=== PATIENT | female | born 1980 | race Caucasian/White ===

== ENCOUNTER 2017-05-14 14:14 | Emergency (ER) | payer OTHER ==
[2017-05-14] MEDS ORDERED: ONDANSETRON HCL/PF 4 MG/ 2ML VIAL IVP ONE (14:32)
[2017-05-14] MEDS ORDERED: 0.9 % SODIUM CHLORIDE 1,000 ML IV ONE (14:32)
[2017-05-14] MEDS ORDERED: KETOROLAC TROMETHAMINE 30 MG/1ML VIAL IVP ONE (14:33)
--- NOTE | 2017-05-14 15:30 | ED Physician Documentation ---
General Adult - HISTORIAN Historian: patient - HPI Stated Complaint: headache Chief Complaint: General Adult Onset: days ago (1) Timing: still present Severity: moderate Further Comments: yes (Pt is a 36 yo female who c/o migraine headache. Headache is similar in character to previous migraines. Pt has had photophobia and nausea. Pt has been dizzy with standing.) - ROS CONST: weakness EYES/ENT: none CVS/RESP: none GI/: nausea MS/SKIN/LYMPH: none NEURO/PSYCH: headache - PAST HX Past History: other (migraine, hypothyroidism) Surgeries/Procedures: Allergies/Adverse Reactions: Allergies Allergy/AdvReac Type Severity Reaction Status Date / Time topiramate [From Topamax] Allergy Verified 05/14/17 14:57 Home Medications: Ambulatory Orders Medication Instructions Recorded Thyroid,Pork [[place] Thyroid] 120 mg PO DAILY 10/09/12 - SOCIAL HX Smoking History: non-smoker - FAMILY HX Family History: No - VITAL SIGNS Vital Signs: Vital Signs Temp Pulse Resp BP Pulse Ox 98.2 F 98 H 16 128/87 97 05/14/17 14:28 05/14/17 14:49 05/14/17 14:49 05/14/17 14:49 05/14/17 14:49 - REVIEWED ASSESSMENTS Nursing Assessment Reviewed: Yes Vitals Reviewed: Yes Progress - Progress Progress: NS 1 L IVF Zofran 4 mg IV Toradol 30 mg IV improved. ED Results Lab/Radiology - Orders Orders: ED Orders Category Date Time Status Place IV Lock 1T Care 05/14/17 14:47 Active 0.9 % Sodium Chloride [Normal Saline] 1,000 ml Med 05/14/17 14:32 Active IV Q1H Ketorolac Tromethamine [Toradol] Med 05/14/17 14:33 Discontinued 30 mg IVP NOW ONE Ondansetron HCl/Pf [Zofran 4 mg/2 ml] Med 05/14/17 14:32 Discontinued 4 mg IVP NOW ONE General Adult Physical Exam - PHYSICAL EXAM GENERAL APPEARANCE: moderate distress EENT: eye inspection normal, ENT inspection normal, pharynx normal NECK: normal inspection, supple RESPIRATORY: no resp distress, chest non-tender, breath sounds normal CVS: reg rate & rhythm, heart sounds normal ABDOMEN: soft, no organomegaly, normal bowel sounds BACK: normal inspection, no CVA tenderness SKIN: warm/dry, normal color EXTREMITIES: non-tender, normal range of motion, no evidence of injury, no edema NEURO: oriented X3, CN's nml as tested, motor nml, sensation nml Discharge Clincal Impression: Migraine Qualifiers: Migraine type: unspecified Status migrainosus presence: without status migrainosus Intractability: not intractable Qualified Code(s): G43.909 - Migraine, unspecified, not intractable, without status migrainosus Referrals: Deb Whalen MD [Primary Care Provider] - Home Medications: Ambulatory Orders Thyroid,Pork [[place] Thyroid] 120 mg PO DAILY 10/09/12 Condition: Good Disposition: 01 HOME, SELF-CARE Decision to Admit: NO Decision Time: 15:31
[2017-05-14 15:43] VITALS: BP 128/86
== END 2017-05-14 15:39 | disposition home or self-care (01) ==
LOC: ED 14:14
DX: G43.909 Migraine, unspecified, not intractable, without status migrainosus (principal)
CPT/HCPCS: J1885; J2405; J7030; 96361; 96374; 96375; 99283; S1016